=== PATIENT | female | born 2005 | race Caucasian/White ===

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

== ENCOUNTER 2024-11-12 15:41 | Outpatient (CLI) | payer OTHER, SELFPAY ==
[2024-11-12 16:39] LABS: Strep Group A RT-PCR NOT DETECTED (Negative)
[2024-11-12 16:53] LABS: Influenza A QL RT-PCR Negative (Negative); Influenza B QL RT-PCR Negative (Negative)
[2024-11-12 17:02] LABS: Monoscreen Positive (Negative); Negative Monotest Control Negative (Negative); Positive Monotest Control Positive (Positive)
== END 2024-11-12 15:42 | disposition home or self-care (01) ==
LOC: ANHLAB 15:43
PROVIDERS: Visit Provider Emergency Medicine
DX: B34.9 Viral infection, unspecified (principal)
CPT/HCPCS: 36415; 86308; 87502; 87651